=== PATIENT | female | born 1965 | race Caucasian/White ===

== ENCOUNTER → 2016-05-21 | Outpatient (CLI) | payer MEDICARE ==
--- NOTE | 2016-05-21 16:56 | US ---
EXAMINATION TYPE: US pelvic complete DATE OF EXAM: 05/21/2016 4:14 PM COMPARISON: NONE CLINICAL HISTORY: Irregular bleeding N92.6. Pt states LMP: 1 1/2 yrs ago, recently started bleeding TECHNIQUE: Transabdominal (TA) pelvic ultrasound. Date of LMP: 1 1/2 yrs ago EXAM MEASUREMENTS: Uterus: 8.8 x 3.8 x 4.3 cm Endometrial Stripe: 0.6 cm Right Ovary: 2.1 x 1.3 x 1.7 cm Left Ovary: 2.6 x 1.4 x 2.2 cm 1. Uterus: Anteverted Probable fibroid anterior fundus= 2.0 x 1.7 x 1.7 cm 2. Endometrium: wnl 3. Right Ovary: wnl 4. Left Ovary: wnl 5. Bilateral Adnexa: wnl 6. Posterior cul-de-sac: wnl Exam is suboptimal as transvaginal evaluation was not performed. Endometrium does not appear suspicio usly thickened and measures up to 6 mm on transabdominal evaluation which is mildly abnormal for post menopausal female. Anterior aspect of uterus technologist dickinson an isoechoic 2.0 x 1.7 cm area could reflect subserosal fibroid. IMPRESSION: Suboptimal study, advise transvaginal pelvic ultrasound to better evaluate and characteri ze uterus and endometrium. It is uncertain why transvaginal evaluation was not performed at this time .
== END | disposition home or self-care (01) ==
LOC: RADUSWWP 15:59
PROVIDERS: ATTEND Obstetrics & Gynecology
DX: N92.6 Irregular menstruation, unspecified (principal)
CPT/HCPCS: 76856

== ENCOUNTER → 2016-05-21 | Outpatient (CLI) | payer MEDICARE ==
[2016-05-21 17:27] LABS: Follicle Stimulating Hormone 15.9 mIU/mL
== END ==
LOC: LABWHC1 16:19
PROVIDERS: ATTEND Obstetrics & Gynecology
DX: N92.6 Irregular menstruation, unspecified (principal)
CPT/HCPCS: 36415; 76856; 82670; 83001; 83002

== ENCOUNTER → 2016-08-24 | Outpatient (CLI) | payer MEDICARE ==
--- NOTE | 2016-08-24 12:00 | MM ---
Reason for exam: screening (asymptomatic). Last mammogram was performed 1 year and 1 month ago. History: Family history of breast cancer in maternal aunt at age 35. Reductions of both breasts, 1993. Taking hormonal contraceptives for 2 years beginning at age 48. Physical Findings: A clinical breast exam by your physician is recommended on an annual basis and results should be correlated with mammographic findings. MG 3D Screening Mammo W/Cad Bilateral CC and MLO view(s) were taken. Prior study comparison: July 22, 2015, bilateral MG 3d diag mammo w/cad [facility]. October 18, 2014, bilateral MG screening mammo w CAD. No significant changes when compared with prior studies. ASSESSMENT: Benign, BI-RAD 2 RECOMMENDATION: Routine screening mammogram of both breasts in 1 year.
== END | disposition home or self-care (01) ==
LOC: RADMAMWWP 10:08
PROVIDERS: ATTEND Obstetrics & Gynecology
DX: Z12.31 Encounter for screening mammogram for malignant neoplasm of breast (principal); Z80.3 Family history of malignant neoplasm of breast
CPT/HCPCS: 77063; G0202

== ENCOUNTER 2016-10-08 17:31 | Emergency (ER) | payer MEDICARE ==
--- NOTE | 2016-10-08 19:57 | ED ---
General Adult HPI - General Chief complaint: Headache Stated complaint: migraine x 7days Time Seen by Provider: 10/08/16 19:57 Source: patient, family Mode of arrival: wheelchair Limitations: no limitations - History of Present Illness Initial comments: is a 51-year-old female with past medical history of chronic headaches who presents to the emergency department today via private vehicle for evaluation of headache of 5 days' duration. Historically she had headaches which were associated with her menses, however approximately 4 years ago her menses became very irregular and aside from having one episode of bleeding proximally 6 months ago she has not had a menstrual cycle in 2 years. Patient states she hasn't had a migraine headache and a number of years. She reports that on Tuesday she began experiencing a headache, headache is located in the back of her head it was not sudden on onset it is similar in character to previous headaches. She describes it as feeling as though she was kicked in the head. Patient states that the headache has persisted throughout the week is not associated with any photophobia, vision changes, ringing in the ears, neck pain, lightheadedness, fevers or chills. Patient states that over-the- counter anti-inflammatories have not worked for her headache which prompted her to come to the ER today. Patient states historically her headaches resolved with IV Toradol. - Related Data Home Medications Medication Instructions Recorded Confirmed Acetaminophen Tab [Tylenol Tab] 650 mg PO Q4H PRN 10/08/16 10/08/16 Ibuprofen [Motrin] 800 mg PO Q6H PRN 10/08/16 10/08/16 diphenhydrAMINE [Benadryl] 50 mg PO HS PRN 10/08/16 10/08/16 Allergies Allergy/AdvReac Type Severity Reaction Status Date / Time morphine Allergy Hallucinati Verified 10/08/16 20:06 ons Review of Systems ROS Statement: Those systems with pertinent positive or pertinent negative responses have been documented in the HPI. ROS Other: All systems not noted in ROS Statement are negative. Constitutional: Denies: fever, chills Eyes: Denies: eye pain, vision change ENT: Denies: throat pain, hearing loss, epistaxis, congestion Respiratory: Denies: cough, dyspnea Cardiovascular: Denies: chest pain, palpitations Endocrine: Denies: fatigue Gastrointestinal: Reports: other (anorexia). Denies: abdominal pain, nausea, vomiting Genitourinary: Reports: abnormal menses (menopause). Denies: urgency, dysuria Musculoskeletal: Denies: back pain, myalgia Skin: Denies: rash, lesions Neurological: Reports: headache. Denies: weakness, numbness, paresthesias, confusion, vertigo Psychiatric: Denies: anxiety, depression Hematological/Lymphatic: Denies: easy bleeding, easy bruising Past Medical History Past Medical History: Fibromyalgia, Hypertension, Thyroid Disorder Additional Past Medical History / Comment(s): migraines, crohns History of Any Multi-Drug Resistant Organisms: None Reported Past Surgical History: Breast Surgery, Cholecystectomy Additional Past Surgical History / Comment(s): fistula Past Psychological History: No Psychological Hx Reported Smoking Status: Never smoker Past Alcohol Use History: None Reported Past Drug Use History: None Reported General Exam Limitations: no limitations General appearance: alert, in no apparent distress Head exam: Present: atraumatic, normocephalic, normal inspection Eye exam: Present: normal appearance, PERRL, EOMI. Absent: scleral icterus, conjunctival injection, periorbital swelling ENT exam: Present: mucous membranes dry, mucous membranes moist Neck exam: Present: normal inspection. Absent: tenderness, meningismus, lymphadenopathy Respiratory exam: Present: normal lung sounds bilaterally. Absent: respiratory distress, wheezes, rales, rhonchi, stridor Cardiovascular Exam: Present: regular rate, normal rhythm, normal heart sounds. Absent: systolic murmur, diastolic murmur, rubs, gallop, clicks GI/Abdominal exam: Present: soft, normal bowel sounds. Absent: distended, tenderness, guarding, rebound, rigid Extremities exam: Present: normal inspection, full ROM, normal capillary refill. Absent: tenderness, pedal edema, joint swelling, calf tenderness Neurological exam: Present: alert, oriented X3, CN II-XII intact Psychiatric exam: Present: normal affect, normal mood Skin exam: Present: warm, dry, intact, normal color, other (multiple tattoos, well healed). Absent: rash Course Vital Signs 10/08/16 17:42 Temperature 97.0 F L Pulse Rate 66 Respiratory 18 Rate Blood Pressure 190/95 O2 Sat by Pulse 98 Oximetry - Reevaluation(s) Reevaluation #1: Patient reevaluated, reports significant improvement in her headache after medications. Patient states she feels comfortable going home at this time. 10/08/16 21:42 Medical Decision Making - Medical Decision Making Patient was seen and evaluated, history was obtained from the patient and her at bedside Patient with a history of migraines, has not had a migraine in some period time , is not on any home medications for migraines She with headache of 5 days' duration, no red flag symptoms with this headache, not sudden in onset, not worst headache of her life, not associated with change in mental status or confusion Patient is currently postmenopausal Migraine cocktail was ordered, patient will be reevaluated after meds Patient was reevaluated, noted to be ambulating independently to the bathroom and back. Patient states her headache improved significantly after medications and she feels ready for discharge home at this time. Disposition Clinical Impression: Migraine Disposition: HOME SELF-CARE Condition: Good Instructions: Acute Headache (ED) Referrals: None,Stated [Primary Care Provider] - 1-2 days
[2016-10-08] MEDS ORDERED: KETOROLAC 30 MG/ML 1 ML VIAL IVP STA (20:24)
[2016-10-08] MEDS ORDERED: diphenhydrAMINE 50 MG/ML 1 ML VIAL IVP STA (20:24)
[2016-10-08] MEDS ORDERED: METOCLOPRAMIDE 5 MG/ML 2 ML VIAL IVP STA (20:24)
[2016-10-08] MEDS ORDERED: SODIUM CHLORIDE 0.9% 1,000 ML IV ONE (20:29)
[2016-10-08 22:21] VITALS: BP 128/70; PULSE 84; RESP 16; TEMP 98.3
== END 2016-10-08 22:20 | disposition home or self-care (01) ==
LOC: EC 17:31
DX: G43.829 Menstrual migraine, not intractable, without status migrainosus (principal); Z88.5 Allergy status to narcotic agent
CPT/HCPCS: 99283; 96374; 96375 ×2; 96361; J1200; J2765; J1885

== ENCOUNTER 2016-10-10 21:50 | Emergency (ER) | payer MEDICARE ==
[2016-10-10] MEDS ORDERED: METOCLOPRAMIDE 5 MG/ML 2 ML VIAL IVP STA (23:31)
[2016-10-10] MEDS ORDERED: diphenhydrAMINE 50 MG/ML 1 ML VIAL IVP STA (23:31)
[2016-10-10] MEDS ORDERED: SODIUM CHLORIDE 0.9% 1,000 ML IV ONE (23:31)
[2016-10-10] MEDS ORDERED: KETOROLAC 30 MG/ML 1 ML VIAL IVP STA (23:31)
[2016-10-11] MEDS ORDERED: DIAZEPAM 5 MG/ML 2 ML SYRINGE IVP STA (01:45)
[2016-10-11] MEDS ORDERED: methylPREDNISolone SOD SUCCI 125 MG/2 ML VIAL IV STA (01:45)
--- NOTE | 2016-10-11 01:48 | ED ---
Headache HPI - General Chief Complaint: Headache Stated Complaint: Headache Time Seen by Provider: 10/10/16 23:19 Mode of arrival: wheelchair Limitations: no limitations - History of Present Illness Initial Comments: This patient is a 51-year-old woman who did have previous history of migraine who presents with occipital headache that she states is similar to her previous headaches. She also has a little bit of pain down the muscles of the neck. The patient noted that the headache came on nearly a week ago. She states it may be related to some lifting that she had done. It seemed to come on the next day. She was seen here 2 days ago and she did have a little bit of relief with the medication here but when she went home the headache did not completely resolve. She states the pain is aching, moderate, and without worsening or relieving factors. She denies any associated symptoms, including no fever or chills, neck stiffness, neurologic symptoms. Not WHOL. Complaint: headache, other -: days(s) Onset Description: gradual Location: occipital Severity: moderate Quality: aching, similar to previous headaches Consistency: constant Improves With: medication Context: occurred at rest Treatments Prior to Arrival: none - Related Data Home Medications Medication Instructions Recorded Confirmed Acetaminophen Tab [Tylenol Tab] 650 mg PO Q4H PRN 10/08/16 10/10/16 Ibuprofen [Motrin] 800 mg PO Q6H PRN 10/08/16 10/10/16 diphenhydrAMINE [Benadryl] 50 mg PO HS PRN 10/08/16 10/10/16 Devil's Claw 2 cap PO BID 10/10/16 10/10/16 Levothyroxine(Unknown Dose) 1 tab PO DAILY 10/10/16 10/10/16 Previous Rx's Medication Instructions Recorded Methocarbamol [Robaxin-750] 750 mg PO TID PRN #30 tablet 10/11/16 Allergies Allergy/AdvReac Type Severity Reaction Status Date / Time morphine Allergy Severe HEADACHES Verified 10/10/16 23:10 Review of Systems ROS Statement: Those systems with pertinent positive or pertinent negative responses have been documented in the HPI. ROS Other: All systems not noted in ROS Statement are negative. Constitutional: Denies: fever, chills, weakness Eyes: Denies: eye pain, vision change ENT: Denies: ear pain Respiratory: Denies: cough Cardiovascular: Denies: chest pain Gastrointestinal: Reports: nausea. Denies: abdominal pain, vomiting Musculoskeletal: Denies: back pain Skin: Denies: rash Neurological: Reports: headache. Denies: weakness, numbness, paresthesias Past Medical History Past Medical History: Fibromyalgia, Hypertension, Thyroid Disorder Additional Past Medical History / Comment(s): migraines, crohns History of Any Multi-Drug Resistant Organisms: None Reported Past Surgical History: Breast Surgery, Cholecystectomy Additional Past Surgical History / Comment(s): fistula Past Psychological History: No Psychological Hx Reported Smoking Status: Never smoker Past Alcohol Use History: None Reported Past Drug Use History: None Reported General Exam Limitations: no limitations General appearance: alert, in no apparent distress Head exam: Present: atraumatic, normocephalic, normal inspection Eye exam: Present: normal appearance. Absent: scleral icterus, conjunctival injection ENT exam: Present: normal oropharynx, mucous membranes moist, TM's normal bilaterally, normal external ear exam Neck exam: Present: normal inspection, tenderness (There is some mild tenderness of the paraspinal muscles at the upper cervical spine bilaterally. No midline tenderness.), full ROM. Absent: meningismus Respiratory exam: Present: normal lung sounds bilaterally. Absent: respiratory distress, wheezes, rales, rhonchi Cardiovascular Exam: Present: regular rate, normal rhythm, normal heart sounds. Absent: systolic murmur, diastolic murmur, rubs, gallop Neurological exam: Present: alert, oriented X3, CN II-XII intact, normal gait. Absent: motor sensory deficit Skin exam: Present: warm, dry, intact, normal color. Absent: rash Course Vital Signs 10/10/16 10/11/16 22:25 01:49 Temperature 98.2 F 97.9 F Pulse Rate 73 81 Respiratory 18 16 Rate Blood Pressure 166/80 167/69 O2 Sat by Pulse 96 96 Oximetry Disposition Clinical Impression: Headache Disposition: HOME SELF-CARE Condition: Good Instructions: Acute Headache (ED) Prescriptions: Methocarbamol [Robaxin-750] 750 mg PO TID PRN #30 tablet PRN Reason: pain Referrals: None,Stated [Primary Care Provider] - 1-2 days Inderjit Saavedra DO [Doctor of Osteopathic Medicine] - 1-2 days
[2016-10-11 01:50] VITALS: BP 167/69; PULSE 81; RESP 16; TEMP 97.9
== END 2016-10-11 02:05 | disposition home or self-care (01) ==
LOC: EC 21:50
DX: R51 Headache (principal); E07.9 Disorder of thyroid, unspecified; Z88.5 Allergy status to narcotic agent
CPT/HCPCS: 99283; 96374; 96375 ×4; J1200; J2765; J2930; J3360; J1885

== ENCOUNTER → 2016-11-10 | Outpatient (CLI) | payer MEDICARE ==
--- NOTE | 2016-11-12 07:42 | ENG ---
ELECTRONYSTAGMOGRAM REPORT VNG REPORT: AGE: 51 VNG INDICATIONS: A 51-year-old female with vertigo, onset 8 weeks ago suddenly associated with a carnival ride and improving. Dizziness can be precipitated by any positional changes. Patient denies hearing loss. She has steady tinnitus in both ears. [facility] FINDINGS: Saccades shows intact peak velocities, accuracies and latencies. Gaze with fixation shows no nystagmus in any of the positions of gaze including centrally with vision denied. Tracking shows breakups at faster and slower speeds. Opticokinetic nystagmus shows no significant asymmetry at faster or slower speeds. Static position testing in 6 different positions with eyes opened and then with vision denied showed no nystagmus in any of the positions. Fillmore-Hallpike maneuvers are positive on the left. Caloric testing shows bilateral caloric weakness. Another test such as the head thrust test , active and passive rotation testing is required to confirm presence of bilateral vestibular dysfunction. IMPRESSION: 1. Abnormal tracking favors potential central nevous system dysfunction. 2. Almita-Hallpike maneuvers are positive on the left. This is consistent with benign positional vertigo on the left. 3. Bilateral caloric weakness precludes diagnosis of vestibulopathy. MMODL / IJN: [id number] /
== END | disposition home or self-care (01) ==
LOC: NEUROMAIN 08:34
PROVIDERS: ATTEND Otolaryngology
DX: H81.23 Vestibular neuronitis, bilateral (principal)
CPT/HCPCS: 92537; 92540

== ENCOUNTER → 2016-11-25 | Outpatient (CLI) | payer MEDICARE ==
--- NOTE | 2016-11-25 09:40 | CT ---
EXAMINATION TYPE: CT brain w con DATE OF EXAM: 11/25/2016 COMPARISON: NONE HISTORY: Syncope and Collapse, vertigo CT DLP: 1141 mGycm Automated Exposure Control for Dose Reduction was Utilized. TECHNIQUE: CT scan of the head is performed with IV contrast.,CT scan of the head is performed withou t and with with IV Contrast, patient injected with 100 ml mL of Omnipaque 300. FINDINGS: Noncontrast images show no enhancing mass or midline shift. Evaluation for intracranial h emorrhage is limited as there are no unenhanced images. The ventricles and sulci are within normal li mits in size. Postcontrast images show no suspicious enhancing intraparenchymal mass. No extracerebra l fluid collections are seen. Minimal mucosal thickening is seen within the sphenoid sinus. The globe s are intact and the remaining visualized sinuses are clear. IMPRESSION: 1. No evidence of enhancing intracranial mass, midline shift, or significant white matter change. If there is further clinical clinical concern MRI brain could be performed. 2. Mild paranasal sinus disease.
== END | disposition home or self-care (01) ==
LOC: RADCTMAIN 08:13
PROVIDERS: ATTEND Otolaryngology
DX: R55 Syncope and collapse (principal); R42 Dizziness and giddiness
CPT/HCPCS: 70460; Q9967

== ENCOUNTER → 2017-11-08 | Outpatient (CLI) | payer MEDICARE ==
--- NOTE | 2017-11-08 12:21 | CT ---
EXAMINATION TYPE: CT lumbar spine w con DATE OF EXAM: 11/08/2017 COMPARISON: None HISTORY: Muscle spasm per order. Low back pain into bilateral hips for [address] DLP: 975 mGycm Automated exposure control for dose reduction was used. CONTRAST: CT scan of the lumbar is performed with IV Contrast, patient injected with 100 mL of Isovue 300. Enhanced CT of the lumbar spine was performed. Bone and soft tissue window settings are submitted as well as coronal and sagittal reconstructions. There are 5 lumbar type vertebra identified. Vertebral body heights are maintained. There is mild to moderate disc space narrowing L3-L4 and mild disc space narrowing L4-L5 level. Posterior disc herniat ions are seen at these levels as well as L5-S1 level on sagittal images. Mild multilevel anterior and lateral spurring is present. Review of the axial images show the T12-L1, L1-L2, L2-L3 levels all to appear within normal limits. Axial images at the L3-L4 level show mild to moderate broad disc bulge mildly effacing anterior theca l sac on axial image 44 with mild facet degenerative changes bilaterally. There is mild to moderate l eft-sided anterior inferior neural foraminal narrowing. Right-sided neural foramen is patent. Some en croachment along inferior left L3 nerve is difficult to exclude sagittal image 31 and axial image 44. Axial images at L4-L5 level show mild to moderate facet degenerative changes and ligamentum flavum hy pertrophy with effacement of posterior lateral thecal sac. There is broad disc bulge with central dis c protrusion component effacing anterior thecal sac on axial image 53. There is mild to moderate bila teral anterior inferior neural foraminal narrowing. Axial images at the L5-S1 level show moderate left greater than right facet degenerative changes bila terally. There is right paracentral/foraminal rim calcified broad-based disc protrusion causing moder ate right-sided inferior neural foraminal narrowing encroaching near exiting right L5 nerve axial janneth ge 61 and sagittal image 20. Left-sided neural foramen is patent. No suspicious postcontrast enhancement is seen. Cholecystectomy clips are noted. Paraspinal muscle bu lk is preserved. IMPRESSION: Multilevel degenerative changes most prominent in the lumbar spine L3-L4 through the L5-S1 levels as detailed above
== END | disposition home or self-care (01) ==
LOC: RADCTMAIN 11:01
PROVIDERS: ATTEND Family Medicine
DX: M47.817 Spondylosis without myelopathy or radiculopathy, lumbosacral region (principal)
CPT/HCPCS: 72132; Q9967

== ENCOUNTER → 2017-11-25 | Outpatient (CLI) | payer MEDICARE ==
--- NOTE | 2017-11-27 19:04 | CT ---
EXAMINATION TYPE: CT cervical spine wo con DATE OF EXAM: 11/25/2017 COMPARISON: None HISTORY: Cervical neuritis CT DLP: 612 mGycm Automated exposure control for dose reduction was used. TECHNIQUE: CT scan of the cervical spine is obtained without contrast, axial images are obtained, sa gittal and coronal reformatted images are also reviewed. FINDINGS: Disc space narrowing is noted C5-6 C6-7. There is straightening of the cervical spine which can be related to patient positioning. C2-3: No focal disc herniation or significant disc bulge is evident. No spinal canal stenosis or neur al foraminal stenosis is present. C3-4: No focal disc herniation or significant disc bulge is evident. No spinal canal stenosis or neur al foraminal stenosis is present. C4-5: No focal disc herniation or significant disc bulge is evident. No spinal canal stenosis is pres ent. Some mild uncovertebral joint hypertrophy is present on the right without significant narrowing. Anterior spondylosis is present at C4-C5. C5-6: Some minimal endplate spurring is present. No focal disc herniation or significant disc bulge i s evident. There may be some mild left paracentral thecal sac compression. Uncovertebral joint hypert rophy is present contributing to severe left foraminal stenosis and moderate right foraminal stenosis . C6-7: Uncovertebral joint hypertrophy and endplate spurring has significant left foraminal stenosis. Mild right foraminal narrowing is present. No focal disc herniation or significant disc bulge is evid ent. Endplate spurring may have contact with the spinal cord. No AP spinal canal stenosis present C7-T1: No focal disc herniation or significant disc bulge is evident. No spinal canal stenosis or libby ral foraminal stenosis is present. Limited CT sections are obtained through the upper lung apices which appear unremarkable. Upper thora cic spine appears within normal limits. IMPRESSIONS: 1. Uncovertebral joint hypertrophy appears greatest at C5-6 and C6-7 with severe left foraminal steno sis. Correlate with radicular symptoms. 2. Degenerative disc changes C5-6 C6-7 with narrowing of the disc height. 3. Anterior spondylosis and spurring at C4 and C5.
== END | disposition home or self-care (01) ==
LOC: RADCTMAIN 17:54
PROVIDERS: ATTEND Family Medicine
DX: M48.02 Spinal stenosis, cervical region (principal); M99.71 Connective tissue and disc stenosis of intervertebral foramina of cervical region; M47.22 Other spondylosis with radiculopathy, cervical region
CPT/HCPCS: 72125

== ENCOUNTER → 2017-12-06 | Outpatient (CLI) | payer MEDICARE ==
--- NOTE | 2017-12-07 07:56 | US ---
EXAMINATION TYPE: US pelvic complete DATE OF EXAM: 12/06/2017 COMPARISON: US CLINICAL HISTORY: N93.8 Dysfunctional uterine bleeding. Patient stated has not had menstrual cycle in 2 years, then had period last week TECHNIQUE: . Transabdominal sonographic images of the pelvis were acquired. Transvaginal sonographi c images were medically necessary to better assess the following anatomy: endometrium Date of LMP: 11/29/2017 EXAM MEASUREMENTS: Uterus: 8.8 x 4.7 x 3.7 cm Endometrial Stripe: 0.6 cm Right Ovary: 2.0 x 1.5 x 1.4 cm Left Ovary: 1.2 x 1.0 x 1.4 cm and better seen on TV US 1. Uterus: Anteverted; upper right uterine hypoechoic fibroid noted = 0.9 x 1.0 x 0.7cm; small Nabot hian cyst noted in cervix 2. Endometrium: Small cystic spaces in the endometrium and junctional zone border on image 25a 3. Right Ovary: simple follicle noted = 0.9 x 0.9 x 0.8cm 4. Left Ovary: small follicle seen 5. Bilateral Adnexa: wnl 6. Posterior cul-de-sac: wnl IMPRESSION: 1. Solitary right fundal intramural 1 cm leiomyoma. 2. Small cystic spaces at the border of the junctional zone in endometrium, which can be seen in akiko omyosis. MR could assess junctional zone thickness at there is further clinical concern.
== END | disposition home or self-care (01) ==
LOC: RADUSWWP 15:28
PROVIDERS: ATTEND Obstetrics & Gynecology
DX: D25.1 Intramural leiomyoma of uterus (principal); N85.8 Other specified noninflammatory disorders of uterus
CPT/HCPCS: 76830; 76856

== ENCOUNTER → 2018-02-13 | Outpatient (CLI) | payer MEDICARE ==
--- NOTE | 2018-02-14 10:41 | MM ---
Reason for exam: screening (asymptomatic). Last mammogram was performed 1 year and 6 months ago. History: Family history of breast cancer in maternal aunt at age 35. Reductions of both breasts, 1994. Taking hormonal contraceptives for 2 years beginning at age 48. Physical Findings: A clinical breast exam by your physician is recommended on an annual basis and results should be correlated with mammographic findings. MG 3D Screening Mammo W/Cad Bilateral CC and MLO view(s) were taken. Prior study comparison: August 24, 2016, bilateral MG 3d screening mammo w/cad. July 22, 2015, bilateral MG 3d diag mammo w/cad [facility]. The breast tissue is heterogeneously dense. This may lower the sensitivity of mammography. There is a new 3mm right upper outer quadrant mass 7.5cm from nipple. Benign appearing bilateral calcifications, dystrophic on the left. ASSESSMENT: Incomplete: need additional imaging evaluation, BI-RAD 0 RECOMMENDATION: Special view mammogram of the right breast. If lesion persists on supplemental views, image directed ultrasound is recommended. [facility] will attempt to contact patient to return for supplemental views and ultrasound if indicated.
== END | disposition home or self-care (01) ==
LOC: RADMAMWWP 12:58
PROVIDERS: ATTEND Family Medicine
DX: Z12.31 Encounter for screening mammogram for malignant neoplasm of breast (principal)
CPT/HCPCS: 77063; 77067

== ENCOUNTER → 2018-03-14 | Outpatient (CLI) | payer MEDICARE ==
--- NOTE | 2018-03-14 15:32 | CT ---
EXAMINATION TYPE: CT lumbar spine wo con DATE OF EXAM: 03/14/2018 3:21 PM COMPARISON: 11/08/2017 HISTORY: back pain CT DLP: 1079.40 mGycm Automated exposure control for dose reduction was used. TECHNIQUE: Unenhanced CT of the lumbar spine was performed. Bone and soft tissue window settings are submitted as well as coronal and sagittal reconstructions. FINDINGS: The lumbar spine vertebral bodies maintain normal vertebral body heights and alignment. The re are mild multilevel degenerative changes of the lumbar spine with small anterior osteophytes and f acet arthropathy at L3-L4, L4-L5 and L5-S1. Few sigmoid diverticula are incidentally noted some conta ining inspissated debris. Appendix is visualized and appears within normal limits of size. Gallbladde r is surgically absent. Degenerative changes of the sacroiliac joints are mild to moderate. No acute fracture or malalignment of the lumbar spine. L1-L2: Normal disc space height. No disc herniation protrusion or central stenosis. No facet joint arthropathy. No evidence for foraminal encroachment. L2-L3: Normal disc space height. No disc herniation protrusion or central stenosis. No facet joint arthropathy. No evidence for foraminal encroachment. L3-L4: There is a left eccentric broad-based disc bulge and facet arthropathy resulting in mild to mo derate left neural foraminal narrowing and mild right neural foraminal narrowing without significant spinal canal stenosis visualized on CT. L4-L5: There is a right eccentric broad-based disc bulge resulting in mild to moderate right neural f oraminal narrowing and mild left neural foraminal narrowing with ligamentum flavum buckling and facet arthropathy contributing to mild spinal canal stenosis. L5-S1: There is a broad-based right eccentric disc bulge with right lateral calcifications of the ben ulus fibrosis resulting in mild to moderate right neural foraminal narrowing. Left neural foramen is patent as is the spinal canal. IMPRESSION: 1. No evidence of vertebral body height loss or malalignment of the lumbar spine. 2. Mild multilevel degenerative changes of the lumbar spine and sacroiliac joints as described above with variable degrees of neural foraminal narrowing and mild spinal canal stenosis at L4-L5. These fi ndings could be more accurately assessed with MRI.
== END | disposition home or self-care (01) ==
LOC: RADCTMAIN 14:54
PROVIDERS: ATTEND Neurological Surgery
DX: M48.061 Spinal stenosis, lumbar region without neurogenic claudication (principal); M99.73 Connective tissue and disc stenosis of intervertebral foramina of lumbar region; M47.816 Spondylosis without myelopathy or radiculopathy, lumbar region
CPT/HCPCS: 72131

== ENCOUNTER → 2018-03-14 | Outpatient (CLI) | payer MEDICARE ==
--- NOTE | 2018-03-17 15:48 | MM ---
Reason for exam: additional evaluation requested from abnormal screening. Last mammogram was performed 1 month ago. History: Family history of premenopausal breast cancer in maternal aunt at age 35. Reductions of both breasts, 1994. Took hormonal contraceptives for 2 years beginning at age 48. Physical Findings: Nurse did not find any significant physical abnormalities on exam. MG 3D Work Up W/Cad RT Spot compression CC, spot compression MLO, and LM view(s) were taken of the right breast. Prior study comparison: February 13, 2018, bilateral MG 3d screening mammo w/cad. August 24, 2016, bilateral MG 3d screening mammo w/cad. The breast tissue is heterogeneously dense. This may lower the sensitivity of mammography. No suspicious abnormality. The previously seen right upper outer quadrant focal asymmetry appears as fibroglandular tissue on additional views and improves on additional views. These results were verbally communicated with the patient and result sheet given to the patient on 03/14/18. ASSESSMENT: Negative, BI-RAD 1 RECOMMENDATION: Return to routine screening mammogram schedule for both breasts.
== END ==
LOC: RADMAMWWP 13:18
PROVIDERS: ATTEND Family Medicine
DX: R92.8 Other abnormal and inconclusive findings on diagnostic imaging of breast (principal)
CPT/HCPCS: 77065; G0279; 77061

== ENCOUNTER → 2018-03-14 | Outpatient (CLI) | payer MEDICARE ==
--- NOTE | 2018-03-14 23:07 | BD ---
EXAMINATION TYPE: Axial Bone Density DATE OF EXAM: 03/14/2018 CLINICAL HISTORY: Height: 5 FT 4 1/2 IN Weight: 195 pounds FRAX RISK QUESTIONS: Secondary Osteoporosis: Rheumatoid Arthritis: yes RISK FACTORS HISTORY OF: Family History of Osteoporosis: yes Active: yes Postmenopausal woman: yes How long: hormonal contraceptives about 2 years Frequent falls: no Poor Health: no MEDICATIONS: Thyroid Medications: yes Which medication: Levothyroxine How Long: about 6 years Additional Medications: LEVOTHYROXINE, HYDROCHLOROTHIAZIDE,TOPROL Additional History: EXAM MEASUREMENTS: Bone mineral densitometry was performed using the [employer] System. Bone mineral density as measured about the Lumbar spine is: ----- L1-L4(G/cm2): 1.493 T Score Values are as follows: ----- L2: 2.1 ----- L3: 2.4 ----- L4: 3.0 ----- L1-L4: 2.6 BASELINE Bone mineral density about the R hip (g/cm2): 1.054 Bone mineral density about the L hip (g/cm2): 1.065 T Score values are as follows: -----R Neck: 0.1 -----L Neck: 0.2 -----R Total: 0.8 -----L Total: 0.9 BASELINE IMPRESSION: Normal (Values between +1 and -1 indicate normal bone mass). Consider repeating this study in 5 year s or sooner if there is some new clinical indication. NOTE: T-SCORE=SD OF THE YOUNG ADULT MEAN.
== END | disposition home or self-care (01) ==
LOC: RADBDWWP 13:16
PROVIDERS: ATTEND Obstetrics & Gynecology
DX: Z13.820 Encounter for screening for osteoporosis (principal); N95.1 Menopausal and female climacteric states; M06.9 Rheumatoid arthritis, unspecified
CPT/HCPCS: 77080

== ENCOUNTER → 2018-06-08 | Outpatient (CLI) | payer MEDICARE ==
--- NOTE | 2018-06-08 16:59 | MR ---
EXAMINATION TYPE: MR lumbar spine wo/w con DATE OF EXAM: 06/08/2018 COMPARISON: CT lumbar spine 03/14/2018 HISTORY: Low back pain M 53.5 CONTRAST: 9.5 mL intravenous Gadavist. TECHNIQUE: Multiplanar, multisequence images of the lumbar spine were acquired. FINDINGS: L5-S1: There is a small right paracentral disc bulge which has contact with the exiting right S1 nerv e root in the anterior thecal sac. Note is placement or compression is evident. There are prior right hemilaminectomy without stenosis. Mild right foraminal narrowing is present. L4-L5: Broad-based disc bulge is present L4-5 with subligamentous disc extension. This is in the cent ral and right paracentral regions. Some mild right foraminal narrowing from disc bulging is present. This has mild anterior thecal sac contact. There may be some posterior right L5 nerve root displaceme nt without definite compression. No spinal canal stenosis present. Ligamentum flavum laxity is presen t with posterior lateral thecal sac compression. L3-L4: No significant disc bulge or disc herniation. No spinal canal stenosis. No foraminal stenosi s. L2-L3: No significant disc bulge or disc herniation. No spinal canal stenosis. No foraminal stenosi s. L1-L2: No significant disc bulge or disc herniation. No spinal canal stenosis. No foraminal stenosi s. T12-L1: No significant disc bulge or disc herniation. No spinal canal stenosis. No foraminal stenos is. No abnormal enhancement. IMPRESSION: 1. Right paracentral disc bulging L5-S1 with contact with the right S1 nerve root and thecal sac with out compression. 2. Broad-based right paracentral disc bulging L4-5 with some subligamentous disc extension. Correlate with right L5 radicular symptoms, some posterior displacement without compression may be present at this level.
== END ==
LOC: RADMRIMAIN 11:28
PROVIDERS: ATTEND Family Medicine
DX: M51.27 Other intervertebral disc displacement, lumbosacral region (principal)
CPT/HCPCS: 82565; 72158; 36415; A9585

== ENCOUNTER → 2020-11-07 | Outpatient (CLI) | payer MEDICARE ==
--- NOTE | 2020-11-07 12:21 | MM ---
Reason for exam: clinical finding. Last mammogram was performed 2 years and 8 months ago. History: Patient is postmenopausal. Family history of premenopausal breast cancer in maternal aunt at age 35. Reductions of both breasts, 1994. Took hormonal contraceptives for 2 years beginning at age 48. Physical Findings: Nurse Summary: 1 x 1cm nodule in the left breast (nurse ts). MG 3D Diag Mammo W/Cad KVNG Bilateral CC and MLO view(s) were taken. Prior study comparison: March 14, 2018, right breast MG 3d work up w/cad RT. February 13, 2018, bilateral MG 3d screening mammo w/cad. The breast tissue is heterogeneously dense. This may lower the sensitivity of mammography. Stable calcifications in the left breast. There is no discrete abnormality. No significant new findings when compared with previous films. These results were verbally communicated with the patient and result sheet given to the patient on 11/07/20. ASSESSMENT: Benign, BI-RAD 2 RECOMMENDATION: Routine screening mammogram of both breasts in 1 year. Manage patient on a clinical basis.
== END | disposition home or self-care (01) ==
LOC: RADMAMWWP 09:25
PROVIDERS: ATTEND Obstetrics & Gynecology
DX: N64.4 Mastodynia (principal)
CPT/HCPCS: 77066; G0279; 77062

== ENCOUNTER → 2020-11-18 | Outpatient (CLI) | payer MEDICARE ==
--- NOTE | 2020-11-18 14:18 | US ---
EXAMINATION TYPE: US pelvic complete DATE OF EXAM: 11/18/2020 COMPARISON: US 12/06/17, 05/21/16 CLINICAL HISTORY: R10.2 Pelvic pain. x 2 months TECHNIQUE: Transabdominal (TA). Transabdominal sonographic images of the pelvis were acquired. Tra nsvaginal sonographic images were medically necessary to better assess the following anatomy: Date of LMP: post menopausal EXAM MEASUREMENTS: Uterus: 8.0 x 4.1 x 3.0 cm Endometrial Stripe: 0.4 cm Right Ovary: 1.8 x 1.4 x 1.3 cm Left Ovary: 2.0 x 1.6 x 1.5 cm 1. Uterus: Anteverted right sided anterior myoma = 1.7 x 1.2 x 0.9 cm 2. Endometrium: wnl 3. Right Ovary: wnl 4. Left Ovary: wnl 5. Bilateral Adnexa: wnl 6. Posterior cul-de-sac: wnl IMPRESSION: 1. Small fibroid right anterior uterus
== END | disposition home or self-care (01) ==
LOC: RADUSWWP 12:02
PROVIDERS: ATTEND Obstetrics & Gynecology
DX: D25.9 Leiomyoma of uterus, unspecified (principal)
CPT/HCPCS: 76856

== ENCOUNTER → 2021-07-10 | Outpatient (CLI) | payer MEDICARE ==
--- NOTE | 2021-07-10 11:01 | XR ---
EXAMINATION TYPE: XR lumbar spine 2 or 3V DATE OF EXAM: 07/10/2021 CLINICAL HISTORY: pain TECHNIQUE: Three views of the lumbar spine are submitted. COMPARISON: None. FINDINGS: There are 5 lumbar type vertebral bodies identified. The lumbar spine shows satisfactory alignment w ithout evidence of acute fracture or dislocation. Vertebral body heights are within normal limits. Moderate multilevel degenerative disc space narrowing and spondylosis. Facet joint arthropathy. The overlying soft tissue appears unremarkable. IMPRESSION: No acute fracture or dislocation is seen in the lumbar spine. ICD 10 NO FRACTURE, INITIAL EVALUATION
== END | disposition home or self-care (01) ==
LOC: RADXRYALE 10:09
PROVIDERS: ATTEND Physician Assistant
DX: M54.50 Low back pain, unspecified (principal)
CPT/HCPCS: 72100

== ENCOUNTER → 2021-09-30 | Outpatient (CLI) | payer MEDICARE ==
--- NOTE | 2021-09-30 16:22 | MR ---
MRI CERVICAL SPINE: CLINICAL HISTORY: Neck pain for 6 years with left hand numbness. TECHNIQUE: Multiplanar, multisequence imaging of the cervical spine is performed without IV contrast. COMPARISON: None. FINDINGS: Slightly suboptimal as there is motion artifact degradation Sagittal images of the cervical spine show the craniocervical junction to appear within normal limits. The cervical and upper thora cic spinal cord is normal in course, caliber, and signal. Vertebral alignment is straightened. The vertebral body height are normal. Mild to moderate disc space narrowing C5-C6 and C6-C7 levels. Mild to moderate anterior spurring C4-C5 and C5-C6 levels. Large osseous hemangioma involving the T2 verte bra. Axial images show C2-C3 level to appear within normal limits. Axial images at C3-C4 level show left-sided uncovertebral facet degenerative changes causing asymmetr ic moderate left-sided neural foraminal narrowing. Axial images at C4-C5 level appear within normal limits. Axial images at C5-C6 level show posterior broad-based disc protrusion effacing anterior thecal sac a nd causing moderate to severe left greater than right bilateral neural foraminal narrowing. Axial images at C6-C7 level show broad-based left paracentral/foraminal disc protrusion effacing the anterolateral thecal sac and causing asymmetric advanced left-sided neural foraminal narrowing. Axial images at C7-T1 level appear within normal limits. IMPRESSION: Straightening of cervical spine with multilevel degenerative changes greatest at C5-C6 an d C6-C7 level as detailed above.
--- NOTE | 2021-09-30 16:27 | MR ---
EXAMINATION TYPE: MR lumbar spine wo/w con DATE OF EXAM: 09/30/2021 COMPARISON: Prior MRI lumbar spine June 08, 2018 HISTORY: Lower back pain. TECHNIQUE: Multiplanar, multisequence images of the lumbar spine is performed without and with IV contrast, util izing 9 mL intravenous Gadavist FINDINGS: Sagittal images of the lumbar spine show vertebral body heights and alignment to remain sat isfactory. Multilevel disc desiccation redemonstrated. Moderate disc space narrowing L3-L4 level agai n seen. Mild disc space narrowing L4-L5 level redemonstrated. The conus medullaris remains normal in position and signal ending inferior L1 level. The bone marrow signal intensity is within normal limi ts. Mild multilevel anterior spurring is redemonstrated. No abnormal postcontrast enhancement is seen . Axial images show T12-L1 through the L2-L3 levels to remain within normal limits. Axial images at the L3-L4 level redemonstrate mild to moderate broad disc bulge mildly effacing anter ior thecal sac along with mild facet arthropathy and ligamentum flavum hypertrophy effacing the poste rior lateral thecal sac. There is mild left greater than right bilateral anterior inferior neural for aminal narrowing. No significant change from prior. Axial images at L4-L5 level show mild/moderate broad-based posterior disc protrusion mildly facing an terior thecal sac along with moderate facet arthropathy and ligamentum flavum hypertrophy effacing po sterior lateral thecal sac. There is moderate bilateral neural foraminal narrowing seen. Degree of ne ural foraminal narrowing is greater than on prior. Axial images at L5-S1 level redemonstrate mild to moderate facet arthropathy bilaterally. There is br oad-based right paracentral/foraminal disc protrusion without spinal canal is preserved. There is asy mmetric mild to moderate right-sided anterior inferior neural foraminal narrowing redemonstrated. No significant change from prior. No suspicious retroperitoneal findings are seen. IMPRESSION: Multilevel degenerative changes in the mid to lower lumbar spine as detailed above. Some interval degenerative progression at L4-L5 level noted from prior.
== END | disposition home or self-care (01) ==
LOC: RADMRIMAIN 14:11
DX: M50.323 Other cervical disc degeneration at C6-C7 level (principal); M51.26 Other intervertebral disc displacement, lumbar region
CPT/HCPCS: 72141; 72158; A9585

== ENCOUNTER → 2021-12-23 | Outpatient (CLI) | payer MEDICARE ==
--- NOTE | 2021-12-23 15:55 | US ---
EXAMINATION TYPE: US pelvic complete DATE OF EXAM: 12/23/2021 COMPARISON: US 2020 CLINICAL HISTORY: R10.2 pelvic pain. Intermittent pelvic pain x couple months, 1 episode of spotting 1 month ago, 2, para 2 TECHNIQUE: . Transabdominal sonographic images of the pelvis were acquired. Date of LMP: 2017 EXAM MEASUREMENTS: Uterus: 8.0 x 3.0 x 3.8 cm Endometrial Stripe: 0.4 cm Right Ovary: 3.3 x 1.6 x 1.9 cm Left Ovary: 2.3 x 1.2 x 1.7 cm 1. Uterus: anteverted, hypoechoic area anterior 1.4 x 0.9 x 1.4cm 2. Endometrium: wnl 3. Right Ovary: wnl 4. Left Ovary: 1.4cm hypoechoic area 5. Bilateral Adnexa: wnl 6. Posterior cul-de-sac: wnl IMPRESSION: 1. Small uterine fibroid anterior fundus. 2. Small cyst may be on the left ovary. Consider follow-up exam in 6 weeks.
--- NOTE | 2021-12-24 09:24 | MM ---
Reason for Exam: Screening (asymptomatic). Last mammogram was performed 1 year(s) and 1 month(s) ago. Patient History: Menarche at age 11. First Full-Term at age 24. Postmenopausal. Hormonal Contraceptives, starting at age 48 for 2 years. 1993, Bilateral Reduction. Maternal aunt had breast cancer, age 35. Risk Values: Jeannie 5 year model risk: 1.4%. NCI Lifetime model risk: 8.7%. Prior Study Comparison: 12/02/2009 Screening Mammogram, [place]. 03/01/2011 Screening Mammogram, [place]. 04/05/2013 Bilateral Diagnostic Mammogram, [facility]. 10/18/2014 Bilateral Screening Mammogram, [facility]. 07/22/2015 Bilateral Diagnostic Mammogram, [facility]. 08/24/2016 Bilateral Screening Mammogram, [facility]. 02/13/2018 Bilateral Screening Mammogram, [facility]. 03/14/2018 Right Diagnostic Mammogram, [facility]. 11/07/2020 Bilateral Diagnostic Mammogram, [facility]. Tissue Density: The breast tissue is heterogeneously dense. This may lower the sensitivity of mammography. Findings: Analyzed By CAD. There is no suspicious group of microcalcifications or new suspicious mass in either breast. Stable calcifications within the left breast. No significant change from prior exam. Overall Assessment: Benign, BI-RAD 2 Management: Screening Mammogram of both breasts in 1 year. A clinical breast exam by your physician is recommended on an annual basis and results should be correlated with mammographic findings. Electronically signed and approved by: Herman Puentes D.O.
== END | disposition home or self-care (01) ==
LOC: RADUSWWP 15:12
PROVIDERS: ATTEND Obstetrics & Gynecology
DX: Z12.31 Encounter for screening mammogram for malignant neoplasm of breast (principal); D25.9 Leiomyoma of uterus, unspecified; Z78.0 Asymptomatic menopausal state; Z80.3 Family history of malignant neoplasm of breast
CPT/HCPCS: 76856; 77063; 77067